=== PATIENT | female | born 1995 | race Caucasian/White ===

== ENCOUNTER 2024-02-10 22:12 | Emergency (ER) | payer BC, SELFPAY ==
[2024-02-10 22:24] VITALS: BP 140/89
--- NOTE | 2024-02-10 23:12 | ED.GENMED ---
History of Present Illness
General
Chief Complaint: Musculo-Skeletal Complaint
Time Seen by Provider: 02/10/24 22:52
History of Present Illness
History of Present Illness:
29-year-old female presents the emergency department for evaluation of right ankle, foot, and right knee pain after falling down stairs. Slipped down the final 2 steps of her stairwell and inverted the right ankle. Not able to bear weight.
Review of Systems
Review of Systems
Allergies reviewed?: Yes
All Other Systems: ROS reviewed and negative except as documented in HPI and ROS
Phy Exam
Physical Exam
Physical Exam:
GEN: Well appearing, NAD, WDWN
HEENT: Oral mucosa moist, no scleral icterus
Cardiac: Regular rate
Lung: No respiratory distress, no tachypnea
MSK: Moderate swelling and ecchymosis to the right lateral midfoot associated with the ATFL region, no focal tenderness to the base of the fifth metatarsal, lateral or medial malleolus. She does have tenderness to the proximal fibula however no
ecchymosis or deformity is noted
Skin: Good color, no pallor or jaundice, no rashes
Neuro: AO x3, moves all extremities freely
Psych: Calm, cooperative
Course
Orders/Labs/Results
Orders:
Orders
02/10/24 22:29
CR Ankle - Right Min 3 Views * Urgent
Comment:
Reason For Exam: pain
Foot, Right 3 View [CR Foot - Right Min 3 Views] Urgent
Comment:
Reason For Exam: pain
02/10/24 22:59
CR Knee- Right 4 Or More View* Urgent
Comment:
Reason For Exam: R lateral knee pain
Vital Signs
Initial and Last Documented VS:
Initial Vital Signs
Temp Pulse Resp BP Pulse Ox
98.3 F 85 20 140/89 100
02/10/24 22:24 02/10/24 22:24 02/10/24 22:24 02/10/24 22:24 02/10/24 22:24
Last Documented Vital Signs
Temp Pulse Resp BP Pulse Ox
98.3 F 85 20 140/89 100
02/10/24 22:24 02/10/24 22:24 02/10/24 22:24 02/10/24 22:24 02/10/24 22:24
MDM/Problems Addressed
MDM/Problems Addressed:
No evidence for acute fracture on imaging. Significant ankle sprain evidenced by marked swelling and ecchymosis. Orthopedic boot and crutches provided, discussed supportive care
*Critical Care Note
Total Time (30-74mins, 75-104mins- exclusive of procedures): Not Applicable
ED Attending Note
-
Portions of this chart may have been created with voice recognition software.� Occasional wrong word or��sound alike� substitutions may have occurred due to the inherent limitations of voice recognition software.
Discharge Plan
Departure
Patient Disposition: Home (Routine Discharge)
Date of Disposition: 02/10/24
Time of Disposition: 23:19
Patient with high blood pressure during this ER visit?: No
Discharge Problem:
Right ankle sprain
Instructions: Ankle Sprain ED
Referrals:
Dannie Driscoll MD [Active] -
Activity Restrictions/Additional Instructions:
Keep leg elevated and ice often
Use the boot when walking but you may remove for sleep as well as showering, consider use of an Andry wrap overnight to prevent further swelling
Follow-up with orthopedics if symptoms do not improve
Interventions
Interventions:
*Risk Screen - Suicide Last Done: 02/10/24 22:26
*General Assessment Last Done: 02/10/24 22:26
*ED COVID-19 Vaccine History Last Done: 02/10/24 22:26
Discharge Date and Time
Print Language: HUNGARIAN
== END 2024-02-10 23:55 | disposition home or self-care (01) ==
LOC: EMR 22:12
PROVIDERS: EMERGENCY PHYSICIAN Emergency Medicine
DX: S93.401A Sprain of unspecified ligament of right ankle, initial encounter (principal); W10.9XXA Fall (on) (from) unspecified stairs and steps, initial encounter
CPT/HCPCS: 99283; 73564; 73610; 73630